=== PATIENT | male | born 1980 | race African-American/Black ===

== ENCOUNTER 2016-06-24 13:03 | Emergency (ER) | payer OTHER | END 2016-06-24 13:10 | disposition home or self-care (01) | LOC: CFTX 13:03 | DX: H11.31 Conjunctival hemorrhage, right eye (principal); H20.00 Unspecified acute and subacute iridocyclitis; I10 Essential (primary) hypertension; F17.210 Nicotine dependence, cigarettes, uncomplicated | CPT/HCPCS: 99283 ==